=== PATIENT | male | born 2000 | race Two or more races ===

== ENCOUNTER 2022-01-19 04:13 | Emergency (ER) | payer SELFPAY ==
[~2022-01-19] VITALS: Ht 152.4 cm; Wt 77.1 kg
[2022-01-19 04:13] VITALS: BP 121/77
== END 2022-01-19 04:46 | disposition left against medical advice (07) ==
LOC: ER 04:13
DX: F10.129 Alcohol abuse with intoxication, unspecified (principal); Y90.9 Presence of alcohol in blood, level not specified; Z53.21 Procedure and treatment not carried out due to patient leaving prior to being seen by health care provider